=== PATIENT | male | born 1980 | race Caucasian/White ===

== ENCOUNTER 2022-05-03 12:02 | Emergency (ER) | payer MEDICARE, SELFPAY ==
[2022-05-03 12:09] VITALS: BP 145/88; PULSE 69; RESP 22; TEMP 36.8; O2SAT 96
[2022-05-03] MEDS: Dexamethasone 10 MG/ML VIAL PO (12:24)
--- NOTE | 2022-05-03 13:35 | ED.GENADUL_ITS ---
Discharge Plan Disposition Patient Disposition: Home Condition: Stable Discharge Details Clinical Impression: COVID Primary Care Provider: Lizzy Chou ED Provider: Slick Guerrero Home Meds and New Rx's Prescriptions: No Action No Known Home Meds Discharge Instructions Instructions: COVID-19 (Coronavirus Disease 2019) (ED) Additional Instructions: Please stay well-hydrated and continue to take acetaminophen as needed for pain or discomfort. If you develop any new or significant worsening of symptoms feel free to return the emergency department for reassessment otherwise follow-up with primary care physician if not improving in the next 1 week. Stand Alone Forms: Work Release Referrals: Lizzy Chou MD [Primary Care Provider] - Discharge Data Discharge Date/Time-TO BE ENTERED AT DEPARTURE: 05/03/22 13:47 Medical Decision Making Patient presenting to the emergency department for chief complaint of nasal congestion, cough, sore throat over the past 2 days. Patient denies any chest pain difficulty breathing difficulty swallowing or difficulty speaking. Phys ical exam shows significant tonsillar erythema and exudates along with posterior pharynx erythema, tender but none swollen lymph nodes on palpation clear lung sounds normal cardiac exam no hypoxia no tachycardia no tachypnea. Differential diagnosis to include strep pharyngitis versus viral etiology. We will perform strep flu and COVID testing. Pending results we will give patient Decadron. Reviewed results and patient was negative for strep and culture was sent which I feel is appropriate. Patient was positive for COVID and negative for influenza. Patient has no past medical history, is a daily smoker but otherwise is not on any medications. Discussed with patient risk versus benefit of antiviral therapy and after thorough discussion and given that patient is low risk for complications shared decision-making was utilized and patient will perform conservative management of symptoms and monitor for any worsening and return if this occurs. After discussion of diagnosis and plan of care patient has no further needs, questions, or concerns and states clear understanding to return to the emergency department for any worsening symptoms. This documentation was generated using [employer] system, please disregard any oddities of phrase or misspellings. HPI General Mode of arrival: ambulatory . Date/Time Provider Initiated Documentation: 05/03/22 12:19 . Limitations to Documentation: no limitations . Information obtained by: patient and RN notes reviewed . History of Present Illness 41 year old M presents to the emergency department with the chief complaint of Sore throat, nasal congestion cough, described as moderate, with intensity rated at 6. Quality is described as aching, and is localized to the mouth (Sore throat). Patient started experiencing this day(s) (2) and it has been constant. No relieving factors improve symptom(s), No exacerbating factors reported . Patient did receive the following treatments prior to arrival, NSAID Related Data Home Medications Medication Instructions Recorded Confirmed Unknown [No Known Home Meds] 05/03/22 05/03/22 Allergies Allergy/AdvReac Type Severity Reaction Status Date / Time ibuprofen Allergy Unverified 05/03/22 12:15 General Stated Complaint: Sorethroat DELFINO: 4 Review of Systems Constitutional Constitutional: Reports body ache(s), Reports chills, Denies fever(s), Reports headache(s) and Reports malaise Eyes Eyes: Denies eye discharge ENT Ears, Nose, Mouth, and Throat: Reports as per HPI, Denies ear discharge, Denies otalgia, Reports headache(s), Reports nasal congestion, Denies neck pain, Reports sore throat and Denies throat swelling Cardiovascular Cardiovascular: Denies chest pain and Denies dyspnea Respiratory Respiratory: Reports cough and Denies dyspnea Gastrointestinal Gastrointestinal: Denies abdominal pain, Denies nausea and Denies vomiting Musculoskeletal Musculoskeletal: Denies joint swelling and Denies neck pain Integumentary/Breasts Skin/Breast: Denies rash Neurologic Neurologic: Reports headache(s) Allergic/Immunologic Allergic/Immunologic: Denies throat swelling PFSH All Active Problems (Updated 05/03/22 @ 13:40 by Slick Guerrero NP) COVID (Acute) Social History Smoking/Tobacco Use Status: Current every day Tobacco Type: cigarettes Smoking risk assessment performed?: Yes Alcohol Intake: current Alcohol Intake frequency: a few times a month Alcohol type: beer Drug use: Daily Substance use type: marijuana Do you feel safe at home: Yes Do you feel safe in your relationship?: Yes Exam Const General: cooperative, comfortable and no acute distress Orientation: alert and awake [facility] Head: normal to inspection, normocephalic and atraumatic Ears: hearing grossly normal bilaterally and TM's normal bilaterally General nose exam: external nose normal Face and sinus: no erythema Mouth: oral mucosae normal, no drooling, no muffled voice and no trismus Throat: uvula midline, abnormal tonsil bilaterally erythema, exudates and hypertrophy and posterior oropharynx abnormal erythema Neck Neck: normal visual inspection, full ROM, no lymphadenopathy, no meningeal signs, trachea midline and supple Resp Effort & Inspection: normal respiratory effort, able to speak in complete sentences and cough Quality of cough: dry Auscultation: clear to auscultation bilaterally Cardio Rate: regular rate Rhythm: regular rhythm Heart Sounds: S1 normal, S2 normal, normal S1 and S2, no click, no gallops, no murmurs and no rubs Skin General skin exam: no rashes or lesions noted and dry skin (warm) Neuro General: patient alert, patient awake, patient oriented x3, gait normal and moves all extremities Cognition: normal cognition Speech: speech normal Course Vital Signs Vital signs: Vital Signs Temperature 36.8 C 05/03/22 12:09 Pulse 69 05/03/22 12:09 Respiratory Rate 22 05/03/22 12:09 Blood Pressure 145/88 H 05/03/22 12:09 Pulse Oximetry 96 05/03/22 12:09 Temperature 36.8 C 05/03/22 12:09 Temperature Source Oral 05/03/22 12:09 Pulse 69 05/03/22 12:09 Respiratory Rate 22 05/03/22 12:09 Respiratory Effort Non-Labored 05/03/22 12:16 Blood Pressure 145/88 H 05/03/22 12:09 Pulse Oximetry 96 05/03/22 12:09 Oxygen Delivery Method Room Air 05/03/22 12:09 Oxygen Flow Rate 0 05/03/22 12:09 Pain Level 6 05/03/22 12:09 Lab/Test Results Lab/Test Results: 05/03/22 12:17 Pharynx Group A Streptococcus Culture - Pending POC Strep Test-[facility](Rapid) Start: 05/03/22 12:19 Freq: Status: Active Protocol: Document 05/03/22 12:19 ANALI (Rec: 05/03/22 12:19 ANALI [id number]) Strep test-[facility](Rapid)-POC POC-Strep test-[facility] (Rapid) Negative POC-Strep test-[facility] (Rapid) Negative
== END 2022-05-03 13:47 | disposition home or self-care (01) ==
PROVIDERS: Emergency Provider Nurse Practitioner Family
DX: U07.1 COVID-19 (principal); F17.210 Nicotine dependence, cigarettes, uncomplicated
CPT/HCPCS: 87880; 99283; 87081; J1100

== ENCOUNTER 2025-02-20 10:25 | Outpatient (CLI) | payer OTHER, SELFPAY ==
--- NOTE | 2025-02-20 09:45 | DI.RAD_ITS ---
Exam(s) XR SHOULDER RT COMPLETE 2+V EXAM: XR SHOULDER RT COMPLETE 2+V CLINICAL HISTORY: RIGHT SHOULDER PAIN. TECHNIQUE: 2D digital imaging was performed of the right shoulder. Two images were obtained. Axillary and Grashey views were obtained. COMPARISON: No exams were available for comparison FINDINGS: BONES: No acute fracture is present. No bony destructive lesion is seen. JOINTS: No dislocation present. The acromioclavicular and glenohumeral joints are well maintained. SOFT TISSUE: Normal. IMPRESSION: No acute abnormality. DATA REPOSITORY: RADIATION DOSE DELIVERED:
== END 2025-02-20 10:26 | disposition home or self-care (01) ==
LOC: DIORS 10:25
PROVIDERS: Visit Provider Student in an Organized Health Care Education/Training Program
DX: M25.511 Pain in right shoulder (principal)
CPT/HCPCS: 73030

== ENCOUNTER → 2025-03-19 01:31 | Outpatient (CLI) | payer OTHER, SELFPAY ==
--- NOTE | 2025-03-19 | DI.MRI_ITS ---
Exam(s) MR UPPER JOINT RT WO EXAM: MR UPPER JOINT RT WO CLINICAL HISTORY: ROTATOR CUFF TEAR RT SHOULDER M75.101 HYPER EXTENSION 09/28/24 LIMITED ROM. TECHNIQUE: Multiplanar multisequence MRI was performed. COMPARISON: Plain films 20 February 2025 FINDINGS: BONES: There is no fracture or contusion pattern. Mild spurring at the greater tuberosity and tip of the acromion.. JOINTS:The acromioclavicular joint shows minimal spurring The glenohumeral joint is normal. TENDONS: Supraspinatus: Mildly increased signal. No focal tear visible. Infraspinatus: Unremarkable. Subscapularis: Unremarkable. Teres Minor: Unremarkable. Biceps and [place]: Unremarkable. MUSCLES: Unremarkable. GLENOID LABRUM: Unremarkable on this noncontrast examination. SOFT TISSUES: Unremarkable. BURSAE: Subacromial and subdeltoid bursae show small amount of fluid.. IMPRESSION: Supraspinatus tendinosis. Small amount of fluid in the subacromial subdeltoid bursa. DATA REPOSITORY:
== END ==
PROVIDERS: PCP Nurse Practitioner Adult Health; Visit Provider Nurse Practitioner Adult Health
DX: M75.101 Unspecified rotator cuff tear or rupture of right shoulder, not specified as traumatic (principal); M75.31 Calcific tendinitis of right shoulder
CPT/HCPCS: 73221